=== PATIENT | female | born 1970 | race Caucasian/White ===

== ENCOUNTER 2016-07-11 03:48 | Emergency (ER) | payer MEDICAID ==
--- NOTE | 2016-07-11 03:51 | EDPHY ---
H & P HPI/ROS: HPI CHIEF COMPLAINT: Abdominal pain, nausea, vomiting, I think my pancreatitis is inflaming" HISTORY OF PRESENT ILLNESS: This patient very pleasant 46-year-old female, significant past medical history for asthma, migraines, seizures takes Dilantin , and chronic pancreatitis. She presents emergency room by ambulance at 4 o' clock in the morning with epigastric and right upper quadrant abdominal pain that she states he has a burning sensation and very consistent with her previous multiple pancreatitis otitis episodes. She endorses nonbilious nonbloody vomiting prior to arrival. She tells me her pain is 6/10 burning in nature. Nonradiating. She denies chest pain shortness of breath. Past Medical History: Asthma, migraine headaches, pancreatitis, seizure disorder on Dilantin Past Surgical History: Total hysterectomy Social History: Denies use of drugs, alcohol tobacco products Family History: Noncontributory ROS REVIEW OF SYSTEMS: A comprehensive 10 point review of systems is otherwise negative aside from elements mentioned in the history of present illness. Exam Constitutional triage nursing summary reviewed, vital signs reviewed, awake/ alert. Eyes normal conjunctivae and sclera, EOMI, PERRLA. HENT normal inspection, atraumatic, moist mucus membranes, no epistaxis, neck supple/ no meningismus, no raccoon eyes. Respiratory clear to auscultation bilaterally, normal breath sounds, no respiratory distress, no wheezing. Cardiovascular rate normal, regular rhythm, no murmur, no edema, distal pulses normal. Gastrointestinal soft however mild tenderness palpation epigastric and right upper quadrant,, no rebound, no guarding, normal bowel sounds, no distension, no pulsatile mass. Genitourinary no CVA tenderness. Musculoskeletal no midline vertebral tenderness, full range of motion, no calf swelling, no tenderness of extremities, no meningismus, good pulses, neurovascularly intact. Skin pink, warm, & dry, no rash, skin atraumatic. Neurologic awake, alert and oriented x 3, AAOx3, moves all 4 extremities equally, motor intact, sensory intact, CN II-XII intact, normal cerebellar, normal vision, normal speech. Psychiatric normal mood/affect. Heme/Lymph/Immune no lymphadenopathy. Differential diagnosis includes but is not limited to and in no particular order : Bowel obstruction, appendicitis, gallbladder disease, diverticulitis, colitis , enteritis, perforated viscus, gastritis, GERD, esophagitis, urinary tract infection, pyelonephritis, kidney stones Medical Decision Making: this patient had an IV established will obtain blood work, she will be medicated with IV Dilaudid for pain control IV Zofran for nausea, IV fluids. Will re-evaluate shortly. She had a CT abdomen pelvis to make sure she does not have a pancreatic pseudocyst or acute cholecystitis. She does still have her gallbladder. Re-evaluation: EKG interpretation by me on record in [employer] system. Impression time of EKG is 4:15 a.m., this is sinus rhythm rate of 75, no acute ischemic changes specifically no ST elevation, ST depression or T-wave abnormalities. No signs of arrhythmia. CT scan of the abdomen pelvis with IV contrast The results of the study are negative for acute inflammatory process. The study was read by Dr. Child. I viewed the images myself on the PACS system. 0639: Re-examination at this time patient is ambulated to the bathroom without any difficulty. She is resting comfortably. Abdomen re-examination is soft nontender no guarding or peritoneal signs. She has not had any vomiting here. CT scan has been reviewed is unremarkable. Blood work unremarkable. No evidence of acute pancreatitis. She feels comfortable going home. She p. o. challenge well. No abdominal pain at this time. She understands return to the ER she develops any worsening symptoms questions or concerns. Source: Patient, EMS - Medical/Surgical History Hx Asthma: Yes Hx Chronic Respiratory Disease: No Hx Diabetes: No Hx Cardiac Disease: No Hx Renal Disease: No Hx Cirrhosis: No Hx Alcoholism: No Hx HIV/AIDS: No Hx Splenectomy or Spleen Trauma: No Other PMH: ASTHMA, PTSD, ASSOCIATIVE DISORDER, DM - Social History Smoking Status: Never smoked Constitutional: Initial Vital Signs O2 Sat (%) 93 07/11/16 04:00 O2 Delivery Mode Room Air O2 (L/minute) 2 Allergies/Adverse Reactions: lithium Allergy (Verified 07/11/16 04:13) ziprasidone HCl [From Geodon] Allergy (Verified 07/11/16 04:13) Home Medications: Medication Instructions Recorded Dilantin 07/11/16 Medical Decision Making - Data Points Laboratory Results: Laboratory Results 07/11/16 04:15 07/11/16 04:15 07/11/16 07/11/16 04:15 01:15 WBC 6.23 10^3/uL (3.80-9.50) RBC 4.68 10^6/uL (4.18-5.33) Hgb 13.6 g/dL (12.6-16.3) Hct 39.0 % (38.0-47.0) MCV 83.3 fL (81.5-99.8) MCH 29.1 pg (27.9-34.1) MCHC 34.9 g/dL (32.4-36.7) RDW 13.0 % (11.5-15.2) Plt Count 326 10^3/uL (150-400) MPV 9.6 fL (8.7-11.7) Neut % (Auto) 53.3 % (39.3-74.2) Lymph % (Auto) 36.1 % (15.0-45.0) [place] % (Auto) 9.8 % (4.5-13.0) Eos % (Auto) 0.3 L % (0.6-7.6) Baso % (Auto) 0.3 % (0.3-1.7) Nucleat RBC Rel Count 0.0 % (0.0-0.2) Absolute Neuts (auto) 3.32 10^3/uL (1.70-6.50) Absolute Lymphs (auto) 2.25 10^3/uL (1.00-3.00) Absolute Monos (auto) 0.61 10^3/uL (0.30-0.80) Absolute Eos (auto) 0.02 L 10^3/uL (0.03-0.40) Absolute Basos (auto) 0.02 10^3/uL (0.02-0.10) Absolute Nucleated RBC 0.00 10^3/uL (0-0.01) Immature Gran % 0.2 % (0.0-1.1) Immature Gran # 0.01 10^3/uL (0.00-0.10) PT 12.1 SEC (12.0-15.0) INR 0.91 (0.83-1.16) APTT 27.8 SEC (23.0-38.0) VBG Lactic Acid 1.7 mmol/L (0.7-2.1) Sodium 141 mEq/L (134-144) Potassium 3.8 mEq/L (3.5-5.2) Chloride 104 mEq/L (97-110) Carbon Dioxide 23 mEq/l (22-31) Anion Gap 14 mEq/L (8-16) BUN 15 mg/dL (7-23) Creatinine 0.6 mg/dL (0.6-1.0) Estimated GFR > 60 Glucose 106 H mg/dL (70-100) Calcium 9.7 mg/dL (8.5-10.4) Total Bilirubin 0.4 mg/dL (0.1-1.4) Conjugated Bilirubin 0.2 mg/dL (0.0-0.5) Unconjugated Bilirubin 0.2 mg/dL (0.0-1.1) AST 28 IU/L (14-46) ALT 44 IU/L (9-52) Alkaline Phosphatase 127 H IU/L (38-126) Total Protein 7.8 g/dL (6.3-8.2) Albumin 4.4 g/dL (3.5-5.0) Lipase 187.0 IU/L (23-300) Beta HCG, Qual NEGATIVE Phenytoin < 3.0 L mcg/mL (10.0-20.0) Medications Given: Discontinued Medications Hydromorphone HCl (Dilaudid) 0.5 mg IVP EDNOW ONE Stop: 07/11/16 04:03 Last Admin: 07/11/16 04:30 Dose: 0.5 mg Sodium Chloride (Ns) 1,000 mls @ 0 mls/hr IV ONCE ONE PRN Reason: Wide Open Stop: 07/11/16 04:01 Last Admin: 07/11/16 04:30 Dose: 1,000 mls Ondansetron HCl (Zofran) 4 mg IVP EDNOW ONE Stop: 07/11/16 04:01 Last Admin: 07/11/16 04:30 Dose: 4 mg Departure - Departure Disposition: Home, Routine, Self-Care Clinical Impression: Abdominal pain Qualifiers: Abdominal location: generalized Qualifier Code: (R10.84) Generalized abdominal pain Condition: Good Instructions: Acute Abdominal Pain (ED) Additional Instructions: 1. Return emergency room if he develops any worsening symptoms questions or concerns. Referrals: NONE *PRIMARY CARE P,. [Primary Care Provider] - As per Instructions
[2016-07-11] MEDS ORDERED: NS 1,000 ML IV ONE (04:00)
[2016-07-11] MEDS ORDERED: ONDANSETRON 4 MG/2 ML VIAL IVP ONE (04:00)
[2016-07-11] MEDS ORDERED: HYDROmorphONE/DILAUDID 1 MG/ML SYR IVP ONE (04:02)
[2016-07-11 04:16] VITALS: RESP 16
[2016-07-11 04:33] LABS: % IMMATURE GRANULYOCYTES 0.2 % (0.0-1.1); ABSOLUTE IMMATURE GRANULOCYTES 0.01 10^3/uL (0.00-0.10); ADD DIFF? NO; ADD MORPH? NO; ADD SCAN? NO; ATYPICAL LYMPHOCYTE FLAG 70 (0-99); FRAGMENT RBC FLAG 0 (0-99); HEMOGLOBIN 13.6 g/dL (12.6-16.3); LEFT SHIFT FLG 0 (0-99); LIPEMIA HEMOLYSIS FLAG 90 (0-99); MEAN CELL HEMOGLOBIN 29.1 pg (27.9-34.1); MEAN CELL HEMOGLOBIN CONCENTR. 34.9 g/dL (32.4-36.7); MEAN CELL VOLUME 83.3 fL (81.5-99.8); MEAN PLATELET VOLUME 9.6 fL (8.7-11.7); PLATELET CLUMPS FLAG 10 (0-99); PLATELET COUNT 326 10^3/uL (150-400); RED BLOOD CELL COUNT 4.68 10^6/uL (4.18-5.33)
[2016-07-11] MEDS ORDERED: IOPAMIDOL (ISOVUE-300) 100 ML BTL IV ONE (04:34)
[2016-07-11 04:38] LABS: APTT 27.8 SEC (23.0-38.0); INR 0.91 (0.83-1.16); PROTIME(PATIENT) 12.1 SEC (12.0-15.0)
[2016-07-11 04:40] LABS: ALANINE AMINOTRANSFERASE 44 IU/L (9-52); ALBUMIN 4.4 g/dL (3.5-5.0); ALKALINE PHOSPHATASE 127 IU/L (38-126); ANION GAP 14 mEq/L (8-16); ASPARTATE AMINOTRANSFERASE 28 IU/L (14-46); BILIRUBIN,TOTAL 0.4 mg/dL (0.1-1.4); BILIRUBIN-CONJUGATED 0.2 mg/dL (0.0-0.5); BILIRUBIN-UNCONJUGATED 0.2 mg/dL (0.0-1.1); CALCIUM 9.7 mg/dL (8.5-10.4); CARBON DIOXIDE 23 mEq/l (22-31); CHLORIDE 104 mEq/L (97-110); CREATININE 0.6 mg/dL (0.6-1.0); GLOMERULAR FILTRATION RATE > 60; GLUCOSE 106 mg/dL (70-100); POTASSIUM 3.8 mEq/L (3.5-5.2); SODIUM 141 mEq/L (134-144); TOTAL PROTEIN 7.8 g/dL (6.3-8.2)
[2016-07-11 07:09] VITALS: BP 133/74; PULSE 74; O2SAT 96
[2016-07-11 07:14] LABS: COLOR PALE YELLOW; LEUKOCYTE ESTERASE,URINE NEGATIVE (NEGATIVE); NITRITE,URINE NEGATIVE (NEGATIVE)
[2016-07-11 07:30] VITALS: TEMP 96.6
--- NOTE | 2016-07-11 15:47 | CT ---
CT Scan of the Abdomen and Pelvis (With Contrast) at 0540 hours History: Right upper quadrant abdominal pain, nausea and vomiting, pancreatitis. Technique: Axial computed tomographic images of the abdomen and pelvis were obtained with the unevent ful intravenous administration of 90 mL Isovue-300 contrast. No oral or rectal contrast which limits the study. Dose reduction techniques were utilized. CT Abdomen Findings: Lung bases: No pleural effusion. Liver: Normal. Biliary system: No obstruction. Spleen: Normal. Pancreas: Normal. Adrenals: Normal. Kidneys: No obstruction or solid masses. Abdominal Aorta: Atherosclerotic aorta without aneurysm. No bowel obstruction, ascites, or significant retroperitoneal lymphadenopathy. CT Pelvis Findings: Appendix appears normal without inflammatory changes. Moderate stool in the colon . A few air-fluid levels in the small bowel right lower quadrant without significant distention or ob struction. Impression: 1. Mild constipation. 2. No CT evidence of appendicitis, abscess or bowel obstruction. 3. No peripancreatic fluid or biliary obstruction. 4. Atherosclerotic aorta without aneurysm. Findings and recommendations discussed with Emergency Department physician, Dr. Ronan Knox at 05 40 hours today. Final report concurs with initial preliminary interpretation.
== END 2016-07-11 07:30 | disposition home or self-care (01) ==
LOC: EDUNIT#
DX: R10.84 Generalized abdominal pain (principal); J45.909 Unspecified asthma, uncomplicated; E11.9 Type 2 diabetes mellitus without complications
CPT/HCPCS: 96374; G0477; J1170; J2405; Q9967

== ENCOUNTER 2016-08-03 05:47 | Emergency (ER) | payer MEDICAID ==
[2016-08-03] MEDS ORDERED: LORazepam 1 MG TAB PO ONE (05:50)
--- NOTE | 2016-08-03 05:53 | EDPHY ---
H & P Source: Patient, EMS - Medical/Surgical History Hx Asthma: Yes Hx Chronic Respiratory Disease: No Hx Diabetes: No Hx Cardiac Disease: No Hx Renal Disease: No Hx Cirrhosis: No Hx Alcoholism: No Hx HIV/AIDS: No Hx Splenectomy or Spleen Trauma: No Other PMH: ASTHMA, PTSD, ASSOCIATIVE DISORDER, DM - Social History Smoking Status: Never smoked HPI/ROS: HPI CHIEF COMPLAINT: I do not want to live anymore HISTORY OF PRESENT ILLNESS: This patient is a 46-year-old female, significant past medical history for bipolar disorder, she presents emergency room by EMS with a [facility] to the ER. They may contact with her the [facility] she was becoming very upset having anxiety feeling very hopeless sad depressed crying and stating that she does not want to live anymore. Upon arrival here in emergency room the patient tells me that she is bipolar she is not on any of her medication. She tells me that she staying at the [facility] having worsening thoughts of depression and thoughts of not wanting to live. She denies any recent drug use. Past Medical History: Bipolar disorder, asthma Past Surgical History: Denies significant surgical history Social History: Homeless, endorses methamphetamine use x1 month ago, denies any alcohol tobacco or other drugs. Family History:Noncontributory ROS REVIEW OF SYSTEMS: A comprehensive 10 point review of systems is otherwise negative aside from elements mentioned in the history of present illness. Exam Constitutional tearful, anxious, triage nursing summary reviewed, vital signs reviewed, awake/alert. Eyes normal conjunctivae and sclera, EOMI, PERRLA. HENT normal inspection, atraumatic, moist mucus membranes, no epistaxis, neck supple/ no meningismus, no raccoon eyes. Respiratory clear to auscultation bilaterally, normal breath sounds, no respiratory distress, no wheezing. Cardiovascular rate normal, regular rhythm, no murmur, no edema, distal pulses normal. Gastrointestinal soft, non-tender, no rebound, no guarding, normal bowel sounds, no distension, no pulsatile mass. Genitourinary no CVA tenderness. Musculoskeletal no midline vertebral tenderness, full range of motion, no calf swelling, no tenderness of extremities, no meningismus, good pulses, neurovascularly intact. Skin pink, warm, & dry, no rash, skin atraumatic. Neurologic awake, alert and oriented x 3, AAOx3, moves all 4 extremities equally, motor intact, sensory intact, CN II-XII intact, normal cerebellar, normal vision, normal speech. Psychiatric depressed, anxious, tearful Heme/Lymph/Immune no lymphadenopathy. Differential Diagnosis: Includes but is not limited to in a particular order, anxiety, worsening depression, bipolar disorder off medication, severe depressive disorder, suicidal Medical Decision Making: this patient will be placed on an M1 hold due to thoughts of not wanting to live anymore, she is very depressed very tearful crying and sad. She also tells me she feels anxious. She has no hope. She will have a blood draw For medical clearance. Re-evaluation: 05: at this time I have ordered this patient 1 mg of p. o. Ativan. I placed on an M1 hold for feeling severely depressed with thoughts of not wanting to live anymore. 0700: Patient signed over to Dr. Álvarez at 7:00 a.m. shift change. (Ronan Knox) Constitutional: Initial Vital Signs Temperature (C) 36.5 C 08/03/16 05:53 Heart Rate 89 08/03/16 05:53 Respiratory Rate 18 08/03/16 05:53 Blood Pressure 137/99 H 08/03/16 05:53 O2 Sat (%) 96 08/03/16 05:53 O2 Delivery Mode Room Air Allergies/Adverse Reactions: lithium Allergy (Verified 07/11/16 04:13) ziprasidone HCl [From Geodon] Allergy (Verified 07/11/16 04:13) Home Medications: Medication Instructions Recorded Dilantin 07/11/16 Medical Decision Making ED Course/Re-evaluation: I assumed care of the patient at 7 o'clock in the morning awaiting psychiatric disposition. Update at 12:00 p.m.: The patient was evaluated by the psychiatric service. She is not suicidal, homicidal or gravely disabled. The patient typically gets her care in [place] and would like to go down there today to waste picker her regular psychiatric medications. Our psychiatric wastewater superintendent has made arrangements to make this happen. The patient's 72 hour mental health hold has been vacated at this point time. The patient will return to the ED for any recurrent symptoms of depression, anxiety, thoughts of self-harm or other concerns. (Kenji Álvarez) - Data Points Laboratory Results: Laboratory Results 08/03/16 06:10 08/03/16 06:10 Medications Given: Discontinued Medications Lorazepam (Ativan) 1 mg PO ONCE ONE Stop: 08/03/16 05:51 Last Admin: 08/03/16 06:06 Dose: 1 mg Departure - Departure Disposition: Home, Routine, Self-Care Clinical Impression: Bipolar disorder Qualifiers: Active/Remission status: currently active Current bipolar episode type: depressed Current episode severity: moderate Qualifier Code: (F31.32) Bipolar disorder, current episode depressed, moderate Depression Qualifiers: Depression Type: major depressive disorder Major depression recurrence: single episode Active/Remission status: currently active Major depression episode severity: mild Qualifier Code: (F32.0) Major depressive disorder, single episode , mild Condition: Fair Instructions: Bipolar Disorder (ED) Additional Instructions: 1. Please follow up as recommended by the psychiatric wastewater superintendent today in [place] to reestablish your regular psychiatric medications. 2. Please return to the ED immediately for thoughts of harming herself, others, worsening symptoms of depression or other concerns. 3. 1. Please follow-up with the mental health resources provided in the ED today. 4. [facility] does operate a 31/01 psychiatric crisis unit located at [address] [place] [address]. The telephone number for the 24 hour crisis center is . Referrals: Patient,NotPresent [Unknown] - As per Instructions
[2016-08-03 05:56] VITALS: RESP 18
[2016-08-03 06:21] LABS: % IMMATURE GRANULYOCYTES 0.2 % (0.0-1.1); ABSOLUTE IMMATURE GRANULOCYTES 0.01 10^3/uL (0.00-0.10); ADD DIFF? NO; ADD MORPH? NO; ADD SCAN? NO; ATYPICAL LYMPHOCYTE FLAG 10 (0-99); FRAGMENT RBC FLAG 0 (0-99); HEMATOCRIT 43.3 % (38.0-47.0); LEFT SHIFT FLG 0 (0-99); LIPEMIA HEMOLYSIS FLAG 90 (0-99); MEAN CELL HEMOGLOBIN 29.2 pg (27.9-34.1); MEAN CELL HEMOGLOBIN CONCENTR. 34.6 g/dL (32.4-36.7); MEAN CELL VOLUME 84.4 fL (81.5-99.8); MEAN PLATELET VOLUME 9.3 fL (8.7-11.7); PLATELET CLUMPS FLAG 0 (0-99); PLATELET COUNT 312 10^3/uL (150-400); RED BLOOD CELL COUNT 5.13 10^6/uL (4.18-5.33); RED CELL DISTRIBUTION WIDTH 13.2 % (11.5-15.2)
[2016-08-03 06:48] LABS: ANION GAP 12 mEq/L (8-16); CALCIUM 10.3 mg/dL (8.5-10.4); CARBON DIOXIDE 24 mEq/l (22-31); CHLORIDE 104 mEq/L (97-110); CREATININE 0.7 mg/dL (0.6-1.0); ETHANOL SERUM < 10 mg/dL (0-10); GLOMERULAR FILTRATION RATE > 60; GLUCOSE 151 mg/dL (70-100); SALICYLATE < 1.0 mg/dL (2.0-20.0); SODIUM 140 mEq/L (134-144)
[2016-08-03 08:08] VITALS: TEMP 98.2
[2016-08-03 12:03] VITALS: BP 132/100; PULSE 94; O2SAT 98
== END 2016-08-03 12:03 | disposition home or self-care (01) ==
LOC: EDUNIT#
DX: F31.32 Bipolar disorder, current episode depressed, moderate (principal); J45.909 Unspecified asthma, uncomplicated; E11.9 Type 2 diabetes mellitus without complications
CPT/HCPCS: 80305; G0480

== ENCOUNTER 2017-05-06 23:11 | Emergency (ER) | payer MEDICAID, OTHER ==
[2017-05-06 23:28] VITALS: RESP 16
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
[2017-05-06 23:58] VITALS: BP 130/68; PULSE 75; O2SAT 95
== END 2017-05-06 23:57 | disposition home or self-care (01) ==
LOC: EDUNIT#
DX: S20.211A Contusion of right front wall of thorax, initial encounter (principal); X58.XXXA Exposure to other specified factors, initial encounter; Y99.8 Other external cause status; Y93.89 Activity, other specified